=== PATIENT | female | born 1955 ===

== ENCOUNTER 2021-07-14 05:42 | Day surgery (SDC) | payer OTHER ==
[~2021-07-14] VITALS: Ht 157.5 cm; Wt 63.5 kg
[~2021-07-14 05:42] MED LIST: AVAPRO300 MG PO; FENOFIBRATE160 MG PO; NORVASC2.5 MG PO; ZOCOR20 MG PO
[2021-07-14] MEDS ORDERED: PERCOCET 5-3251 EACH PO (08:54)
[2021-07-14] MEDS ORDERED: RECTICARE30 GM TOP (08:55)
== END 2021-07-14 14:35 | disposition home or self-care (01) ==
LOC: CIR.AMB 05:42
PROVIDERS: ATTEND Surgery
DX: C20 Malignant neoplasm of rectum (principal); K64.4 Residual hemorrhoidal skin tags; Z20.822 Contact with and (suspected) exposure to COVID-19; I10 Essential (primary) hypertension